=== PATIENT | male | born 1980 | race Caucasian/White ===

== ENCOUNTER 2020-06-07 15:25 | Emergency (ER) | payer BC ==
--- OUTSIDE RECORDS SUMMARY | 2020-06-07 15:28 | XMS REPORT | Continuity of Care Document ---
:1980 Author Organization [facility] t Address [address] [place] [address] Dr. Hoffmann [address] [place] [id number] Care Team Providers Name Role Phone Unavailable Unavailable Unavailable Problems This patient has no known problems. Allergies, Adverse Reactions, Alerts This patient has no known allergies or adverse reactions. Medications This patient has no known medications. Procedures This patient has no known procedures. Results This patient has no known results.
[2020-06-07] MEDS ORDERED: HYDROCODONE/APAP 10/325 TAB ONE (17:03)
[2020-06-07] MEDS ORDERED: CYCLOBENZAPRINE 10 MG TAB ONE (17:03)
--- NOTE | 2020-06-07 17:20 | RAD REPORT ---
EXAM DESCRIPTION: CT - Spine Lumbar Wo Con - 06/07/2020 5:08 pm CLINICAL HISTORY: Radiculopathy. LOWER BACK PAIN COMPARISON: No comparisons TECHNIQUE: Axial noncontrast CT imaging of the lumbar spine was performed with coronal and sagittal re-formatted images. All CT scans are performed using dose optimization technique as appropriate and may include automated exposure control or mA/KV adjustment according to patient size. FINDINGS: No acute lumbar spine fracture seen. No aggressive marrow pattern or malalignment. Paraspinal tissues are normal in thickness. No paraspinal abscess or hematoma seen. Prominent disc herniation is suspected at L4-5, incompletely assessed by CT. IMPRESSION: No acute lumbar spine abnormality. Suspected disc herniation at L4-5, incompletely assessed. Recommend follow-up nonemergent MR imaging of the lumbar spine for further assessment.
--- NOTE | 2020-06-07 17:55 | ER ---
Nurse's Notes [facility] Name: Juan Manuel Abraham Age: 40 yrs Sex: Male : 1980 Arrival Date: 06/07/2020 Time: 15:32 Bed 19 Private MD: Diagnosis: Low back pain-L4-5 disc herniation Presentation: 06/07 15:59 Chief complaint: Patient states: Woke up yesterday, I can't move, can't put my shorts ca1 on. Reports lower back pain and has gotten worse since yesterday. Denies injury to the back. Denies urinary symptoms. Coronavirus screen: Client denies travel out of the [place] in the last 14 days. At this time, the client does not indicate any symptoms associated with coronavirus-19. Ebola Screen: Patient negative for fever greater than or equal to 101.5 degrees Fahrenheit, and additional compatible Ebola Virus Disease symptoms Patient denies exposure to infectious person. Patient denies travel to an Ebola-affected area in the 21 days before illness onset. No symptoms or risks identified at this time. Initial Sepsis Screen: Does the patient meet any 2 criteria? No. Patient's initial sepsis screen is negative. Does the patient have a suspected source of infection? No. Patient's initial sepsis screen is negative. Risk Assessment: Do you want to hurt yourself or someone else? Patient reports no desire to harm self or others. Onset of symptoms was June 07, 2020. 15:59 Method Of Arrival: Wheelchair ca1 15:59 Acuity: YASSINE 3 ca1 Historical: - Allergies: 16:02 No Known Allergies; ca1 - Home Meds: 16:02 None [Active]; ca1 - PMHx: 16:02 None; ca1 - PSHx: 16:02 None; ca1 - Immunization history:: Flu vaccine is not up to date. - Social history:: Smoking status: Patient reports the use of cigarette tobacco products, smokes one-half pack cigarettes per day. Screenin:26 Abuse screen: Denies threats or abuse. Denies injuries from another. Nutritional zb screening: No deficits noted. Tuberculosis screening: No symptoms or risk factors identified. Fall Risk None identified. Assessment: 16:42 Reassessment: ECP at bedside. zb 17:00 General: Appears uncomfortable, Behavior is cooperative, appropriate for age. Pain: zb Complains of pain in low back area Pain currently is 10 out of 10 on a pain scale. Quality of pain is described as aching, piercing, Pain began 1 day ago. Is continuous, Aggravated by increased activity, repositioning. Neuro: Level of Consciousness is awake, alert, obeys commands, Oriented to person, place, time, situation. Cardiovascular: Patient's skin is warm and dry. Respiratory: Airway is patent Respiratory effort is even, unlabored, Respiratory pattern is regular, symmetrical. GI: Abdomen is round. : No signs and/or symptoms were reported regarding the genitourinary system. EENT: No signs and/or symptoms were reported regarding the EENT system. Derm: Skin is intact, Skin is dry, Skin is normal, Skin temperature is warm. Musculoskeletal: Range of motion: intact in all extremities, Reports pain in low back area Denies. 18:20 Reassessment: Patient appears in no apparent distress at this time. Patient and/or zb family updated on plan of care and expected duration. Pain level reassessed. Patient is alert, oriented x 3, equal unlabored respirations, skin warm/dry/pink. D/C PENDING IM INJECTION TIME. PATIENT APPEARS TO BE MORE MOBILE. Vital Signs: 15:59 BP 132 / 97; Pulse 81; Resp 16 S; Temp 97.7(TE); Pulse Ox 98% on R/A; Weight 88.45 kg ca1 (R); Height 5 ft. 7 in. (170.18 cm) (R); Pain 10/10; 17:25 BP 144 / 99; Pulse 68; Resp 16; Pulse Ox 94% on R/A; zb 18:21 BP 129 / 77; Pulse 66; Resp 18; Pulse Ox 94% on R/A; zb 15:59 Body Mass Index 30.54 (88.45 kg, 170.18 cm) ca1 ED Course: 15:32 Patient arrived in ED. bg2 16:01 Triage completed. ca1 16:02 Arm band placed on right wrist. ca1 16:26 Elham Vora FNP-C is PHCP. kb 16:26 Juan Pablo Moralez MD is Attending Physician. kb 16:50 Kaleigh Lamar RN is Primary Nurse. zb 17:27 Patient has correct armband on for positive identification. Bed in low position. Call zb light in reach. Side rails up X 1. Pulse ox on. NIBP on. Door closed. Noise minimized. Warm blanket given. Head of bed elevated. 18:30 No provider procedures requiring assistance completed. Patient did not have IV access zb during this emergency room visit. Administered Medications: 16:48 Drug: Sublette 10 mg-325 mg 1 tabs {Note: rass 0.} Route: PO; ca1 18:20 Follow up: Response: No adverse reaction; Pain is decreased; RASS: Alert and Calm (0) zb 16:50 Drug: Flexeril 10 mg Route: PO; ca1 18:20 Follow up: Response: No adverse reaction; Pain is decreased zb 18:13 Drug: Lidoderm 5 % (700 mg/patch) 1 patches Route: Topical; Site: affected area; zb 18:30 Follow up: Response: No adverse reaction zb 18:15 Drug: TORadol 60 mg Route: IM; Site: left deltoid; zb 18:30 Follow up: Response: No adverse reaction zb Outcome: 17:55 Discharge ordered by . kb 18:30 Discharged to home via wheelchair. zb 18:30 Condition: stable 18:30 Discharge instructions given to patient, Instructed on discharge instructions, follow up and referral plans. medication usage, Demonstrated understanding of instructions, follow-up care, medications, Prescriptions given X 3. 18:43 Patient left the ED. zb Signatures: Elham Vora, YO ROBERSON-Ro Whitfield bg2 Marilia Menendez RN RN ca1 Kaleigh Lamar RN RN zb
--- NOTE | 2020-06-07 17:55 | EDPHYS ---
Physician Documentation [facility] Name: Juan Manuel Abraham Age: 40 yrs Sex: Male : 1980 Arrival Date: 06/07/2020 Time: 15:32 Bed 19 Private MD: JENNIFER Physician Juan Pablo Moralez HPI: 06/07 18:07 This 40 yrs old Male presents to ER via Wheelchair with complaints of Back kb Pain. 18:07 The patient presents with pain that is acute, with no known mechanism of injury. The kb symptoms are located in the low back. Onset: The symptoms/episode began/occurred this morning. The pain does not radiate. Associated signs and symptoms: The patient has no apparent associated signs or symptoms. The problem was sustained from unknown cause. Modifying factors: The patient symptoms are alleviated by nothing, the patient symptoms are aggravated by any movement. Severity of symptoms: At their worst the symptoms were severe, in the emergency department the symptoms are unchanged. The patient has not experienced similar symptoms in the past. The patient has not recently seen a physician. Historical: - Allergies: 16:02 No Known Allergies; ca1 - Home Meds: 16:02 None [Active]; ca1 - PMHx: 16:02 None; ca1 - PSHx: 16:02 None; ca1 - Immunization history:: Flu vaccine is not up to date. - Social history:: Smoking status: Patient reports the use of cigarette tobacco products, smokes one-half pack cigarettes per day. ROS: 18:06 Constitutional: Negative for fever, chills, and weight loss, Cardiovascular: Negative kb for chest pain, palpitations, and edema, Respiratory: Negative for shortness of breath, cough, wheezing, and pleuritic chest pain, Abdomen/GI: Negative for abdominal pain, nausea, vomiting, diarrhea, and constipation, : Negative for injury, bleeding, discharge, and swelling, MS/Extremity: Negative for injury and deformity, Skin: Negative for injury, rash, and discoloration, Neuro: Negative for headache, weakness, numbness, tingling, and seizure. 18:06 Back: Positive for pain at rest, pain with movement, of the low back area. Exam: 18:06 Constitutional: This is a well developed, well nourished patient who is awake, alert, kb and in no acute distress. Head/Face: Normocephalic, atraumatic. Cardiovascular: Regular rate and rhythm with a normal S1 and S2. No gallops, murmurs, or rubs. No pulse deficits. Respiratory: Lungs have equal breath sounds bilaterally, clear to auscultation. No rales, rhonchi or wheezes noted. No increased work of breathing, no retractions or nasal flaring. Abdomen/GI: Soft, non-tender, with normal bowel sounds. No distension. No guarding or rebound. No evidence of tenderness throughout. Skin: Warm, dry with normal turgor. Normal color with no rashes, no lesions, and no evidence of cellulitis. MS/ Extremity: Pulses equal, no cyanosis. Neurovascular intact. Full, normal range of motion. Neuro: Awake and alert, GCS 15, oriented to person, place, time, and situation. Cranial nerves II-XII grossly intact. Moves all extremities. Sensory grossly intact. Cerebellar exam normal. Normal gait. 18:06 Back: pain, that is moderate, that is severe, of the low back area, ROM is painful, with all movement, normal spinal alignment noted. Vital Signs: 15:59 BP 132 / 97; Pulse 81; Resp 16 S; Temp 97.7(TE); Pulse Ox 98% on R/A; Weight 88.45 kg ca1 (R); Height 5 ft. 7 in. (170.18 cm) (R); Pain 10/10; 17:25 BP 144 / 99; Pulse 68; Resp 16; Pulse Ox 94% on R/A; zb 18:21 BP 129 / 77; Pulse 66; Resp 18; Pulse Ox 94% on R/A; zb 15:59 Body Mass Index 30.54 (88.45 kg, 170.18 cm) ca1 MDM: 16:40 Patient medically screened. kb 17:54 Data reviewed: vital signs, nurses notes. Data interpreted: Pulse oximetry: on room air kb is 98 %. Interpretation: normal. Counseling: I had a detailed discussion with the patient and/or guardian regarding: the historical points, exam findings, and any diagnostic results supporting the discharge/admit diagnosis, radiology results, the need for outpatient follow up, a family practitioner, to return to the emergency department if symptoms worsen or persist or if there are any questions or concerns that arise at home. 06/07 16:46 Order name: CT Lumbar Spine Wo Con kb 06/07 17:21 Order name: CT; Complete Time: 17:22 EDMS Administered Medications: 16:48 Drug: Beemer 10 mg-325 mg 1 tabs {Note: rass 0.} Route: PO; ca1 18:20 Follow up: Response: No adverse reaction; Pain is decreased; RASS: Alert and Calm (0) zb 16:50 Drug: Flexeril 10 mg Route: PO; ca1 18:20 Follow up: Response: No adverse reaction; Pain is decreased zb 18:13 Drug: Lidoderm 5 % (700 mg/patch) 1 patches Route: Topical; Site: affected area; zb 18:30 Follow up: Response: No adverse reaction zb 18:15 Drug: TORadol 60 mg Route: IM; Site: left deltoid; zb 18:30 Follow up: Response: No adverse reaction zb Disposition: 06/07/20 17:55 Discharged to Home. Impression: Low back pain - L4-5 disc herniation. - Condition is Stable. - Discharge Instructions: Back Injury Prevention, Escr-ov-Hgqy, Back Pain, Adult, Lzya-xn-Mekk, Herniated Disk, Vewm-mw-Gsui. - Prescriptions for Ibuprofen 800 mg Oral Tablet - take 1 tablet by ORAL route every 8 hours As needed take with food; 30 tablet. Tylenol- Codeine #3 300-30 mg Oral Tablet - take 1 tablet by ORAL route every 4 hours As needed; 15 tablet. Cyclobenzaprine 10 mg Oral Tablet - take 1 tablet by ORAL route every 8 hours As needed; 21 tablet. - Work release form, Medication Reconciliation Form, Thank You Letter, Antibiotic Education, Prescription Opioid Use form. - Follow up: Emergency Department; When: As needed; Reason: Worsening of condition. Follow up: Private Physician; When: 2 - 3 days; Reason: Recheck today's complaints, Continuance of care, Re-evaluation by your physician. Addendum: 06/08/2020 19:55 Co-signature as Attending Physician, Juan Pablo Moralez MD I agree with the assessment and c haddad plan of care. Signatures: Dispatcher [employer] EDSD Elham Vora, GLAZIER SUPERVISOR-C KAROL-Juan Pablo Rowland MD MD cha Acob, Cheryl RN RN ca1 Brown, Kaleigh, RN RN zb Corrections: (The following items were deleted from the chart) 06/07 18:43 17:55 06/07/2020 17:55 Discharged to Home. Impression: Low back pain - L4-5 disc zb herniation. Condition is Stable. Forms are Medication Reconciliation Form, Thank You Letter, Antibiotic Education, Prescription Opioid Use. Follow up: Emergency Department; When: As needed; Reason: Worsening of condition. Follow up: Private Physician; When: 2 - 3 days; Reason: Recheck today's complaints, Continuance of care, Re-evaluation by your physician. kb
[2020-06-07] MEDS ORDERED: LIDOCAINE 4% PATCH ONE (18:29)
[2020-06-07] MEDS ORDERED: KETOROLAC 30 MG/ML INJ ONE (18:29)
[2020-06-07 20:44] VITALS: TEMP 97.7
[2020-06-07 20:45] VITALS: O2SAT 94
[2020-06-07 20:46] VITALS: BP 129/77
== END 2020-06-07 18:43 | disposition home or self-care (01) ==
LOC: ER 15:25
DX: M51.26 Other intervertebral disc displacement, lumbar region (principal); F17.210 Nicotine dependence, cigarettes, uncomplicated
CPT/HCPCS: 72131; 96372; 99283

== ENCOUNTER 2023-08-27 17:28 | Emergency (ER) | payer BC ==
--- OUTSIDE RECORDS SUMMARY | 2023-08-27 17:31 | XMS REPORT | Continuity of Care Document ---
Author Name Unknown Address [address] [place] [address] [facility] thconnect Address 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 Name Role Phone BLANCO DING Attending Clinician Unavailable Payers Payer Name Policy Type Policy Number Effective Date Expirati on Date Source [facility] [id number] 2020 00:00:00 Allergies, Adverse Reactions, Alerts Allergy Name Allergy Type Status Severity Reaction(s) Onset Date Inactive Date Treating Clinician Comments Source NO KNOWN ALLERGIE S Drug Class Active [facility] Encounters Start Date/Time End Date/Time Encounter Type Admission Type Attending Clinicians Care Facility Care Department Encounter ID Source 2020-05-11 11:20:00 2020-05-11 11:20:00 Outpatient BLANCO HARTMANN [facility] [id number] [facility] 2020-05-11 11:15:00 2020-05-11 11:15:00 Outpatient [facility] [id number] [facility]
[2023-08-27] MEDS ORDERED: KETOROLAC 30 MG/ML INJ ONE (18:04)
[2023-08-27] MEDS ORDERED: HYDROCODONE/APAP 10/325 TAB ONE (18:04)
--- NOTE | 2023-08-27 19:32 | RAD REPORT ---
EXAM DESCRIPTION: RAD - Knee Left 3 View - 08/27/2023 7:22 pm CLINICAL HISTORY: PAIN COMPARISON: No comparisons FINDINGS/IMPRESSION: Predominantly transversely oriented fracture of the proximal tibial metaphysis. No extension to the tibial plateau is identified. Avulsion fracture of the proximal fibula is also p resent. Lipohemarthrosis is present. The distal femur is intact.
--- NOTE | 2023-08-27 19:39 | ER ---
Nurse's Notes [facility] Name: Juan Manuel Abraham Age: 43 yrs Sex: Male : 1980 Arrival Date: 08/27/2023 Time: 17:28 Bed 9 Private MD: Diagnosis: Fracture of proximal tibia;Avulsion fracture of proximal fibula Presentation: 08/26 18:01 Chief complaint: Patient states: pt was racing his son and fell and hit his left knee. as6 Coronavirus screen: At this time, the client does not indicate any symptoms associated with coronavirus-19. Ebola Screen: No symptoms or risks identified at this time. Initial Sepsis Screen: Does the patient meet any 2 criteria? No. Patient's initial sepsis screen is negative. Does the patient have a suspected source of infection? No. Patient's initial sepsis screen is negative. Risk Assessment: Do you want to hurt yourself or someone else? Patient reports no desire to harm self or others. Onset of symptoms was August 27, 2023. 18:01 Acuity: YASSINE 4 as6 18:01 Method Of Arrival: Wheelchair as6 Triage Assessment: 18:03 General: Appears uncomfortable, Behavior is calm, cooperative. Pain: Complains of pain as6 in left knee. Historical: - Allergies: 18:01 No Known Allergies; as6 - PMHx: 18:01 None; as6 - PSHx: 18:01 leg; as6 - Immunization history:: Adult Immunizations up to date. - Infectious Disease History:: Denies. - Social history:: Smoking status: Patient denies any tobacco usage or history of. - Family history:: not pertinent. Screenin:27 Abuse screen: Denies threats or abuse. Nutritional screening: No deficits noted. eb1 Tuberculosis screening: No symptoms or risk factors identified. Assessment: 20:00 General: Appears in no apparent distress. uncomfortable, well groomed, well developed, eb1 well nourished, Behavior is calm, cooperative, appropriate for age. Pain: Complains of pain in left knee Pain currently is 8 out of 10 on a pain scale. Neuro: No deficits noted. Cardiovascular: No deficits noted. Respiratory: No deficits noted. GI: No deficits noted. No signs and/or symptoms were reported involving the gastrointestinal system. : No deficits noted. No signs and/or symptoms were reported regarding the genitourinary system. EENT: No deficits noted. No signs and/or symptoms were reported regarding the EENT system. Derm: No deficits noted. No signs and/or symptoms reported regarding the dermatologic system. Musculoskeletal: No deficits noted. No signs and/or symptoms reported regarding the musculoskeletal system. Vital Signs: 18:01 BP 129 / 85; Pulse 103; Resp 18 S; Temp 98.5; Pulse Ox 96% on R/A; Weight 85.28 kg (R); as6 Height 5 ft. 7 in. (R); Pain 10/10; 18:01 Body Mass Index 29.44 (85.28 kg, 170.18 cm) as6 18:01 Pain Scale: Adult as6 ED Course: 17:31 Patient arrived in ED. mg5 17:34 Scott Metcalf MD is Attending Physician. rt 18:01 Arm band placed on. as6 18:03 Triage completed. as6 18:09 Affected limb iced. as6 19:23 Knee Left 3 View XRAY In Process Unspecified. EDMS 19:39 Jac Manzanares MD is Referral Physician. rt 20:27 Patient has correct armband on for positive identification. eb1 20:27 No provider procedures requiring assistance completed. Patient did not have IV access eb1 during this emergency room visit. Administered Medications: 18:09 Drug: HYDROcodone-acetaminophen PO 10 mg-325 mg 1 tabs PO once Route: PO; as6 18:09 Drug: Ketorolac IM 15 mg IM once Route: IM; Site: right deltoid; as6 Outcome: 19:39 Discharge ordered by . rt 20:27 Discharged to home with crutches, with family, eb1 20:27 Condition: good 20:27 Discharge instructions given to patient, Instructed on discharge instructions, follow up and referral plans. Demonstrated understanding of instructions, follow-up care, medications, Prescriptions given X 1, 20:28 Patient left the ED. eb1 Signatures: Dispatcher [employer] EDMS Elena Fry RN RN eb1 Pardeep Gagnon RN RN as6 Scott Metcalf MD MD rt Elly Montalvo mg5 Corrections: (The following items were deleted from the chart) 18:01 18:01 Allergies: No Known Allergies; as6 as6 18:01 18:01 PMHx: None; as6 as6 18:01 18:01 PSHx: None; as6 as6
--- NOTE | 2023-08-27 19:39 | EDPHYS ---
Physician Documentation [facility] Name: Juan Manuel Abraham Age: 43 yrs Sex: Male : 1980 Arrival Date: 08/27/2023 Time: 17:28 Bed 9 Private MD: ED Physician Scott Metcalf HPI: 08/26 19:58 This 43 yrs old Male presents to ER via Wheelchair with complaints of Knee rt Injury. 19:58 Patient presents to the ED with an injury to the left knee. Patient was running rt outside, when he fell, landing onto his left knee. Reports pain to the area. Was not able to bear weight. Denies other injuries, other acute complaints, symptoms are aching in nature, nonradiating, moderate in severity, no other aggravating or alleviating factors.. Historical: - Allergies: 18:01 No Known Allergies; as6 - PMHx: 18:01 None; as6 - PSHx: 18:01 leg; as6 - Immunization history:: Adult Immunizations up to date. - Infectious Disease History:: Denies. - Social history:: Smoking status: Patient denies any tobacco usage or history of. - Family history:: not pertinent. ROS: 19:58 Constitutional: Negative for fever, chills, and weight loss, Cardiovascular: Negative rt for chest pain, palpitations, and edema, Respiratory: Negative for shortness of breath, cough, wheezing, and pleuritic chest pain, Abdomen/GI: Negative for abdominal pain, nausea, vomiting, diarrhea, and constipation, Neuro: Negative for headache, weakness, numbness, tingling, and seizure, 19:58 : Positive for 19:58 MS/extremity: Positive for pain, swelling, Exam: 19:58 Constitutional: This is a well developed, well nourished patient who is awake, alert, rt and in no acute distress. Head/Face: Normocephalic, atraumatic. Chest/axilla: Normal chest wall appearance and motion. Nontender with no deformity. No lesions are appreciated. Cardiovascular: Regular rate and rhythm with a normal S1 and S2. No gallops, murmurs, or rubs. Normal PMI, no JVD. No pulse deficits. Respiratory: Lungs have equal breath sounds bilaterally, clear to auscultation and percussion. No rales, rhonchi or wheezes noted. No increased work of breathing, no retractions or nasal flaring. Abdomen/GI: Soft, non-tender, with normal bowel sounds. No distension or tympany. No guarding or rebound. No evidence of tenderness throughout. Skin: Warm, dry with normal turgor. Normal color with no rashes, no lesions, and no evidence of cellulitis. Neuro: Awake and alert, GCS 15, oriented to person, place, time, and situation. Cranial nerves II-XII grossly intact. Motor strength 5/5 in all extremities. Sensory grossly intact. Cerebellar exam normal. Normal gait. 19:58 Musculoskeletal/extremity: Tenderness over left tibial tuberosity, no deformities noted, mild swelling at the area. Pulses, motor, sensation intact, compartments are soft.. Vital Signs: 18:01 BP 129 / 85; Pulse 103; Resp 18 S; Temp 98.5; Pulse Ox 96% on R/A; Weight 85.28 kg (R); as6 Height 5 ft. 7 in. (R); Pain 10/10; 18:01 Body Mass Index 29.44 (85.28 kg, 170.18 cm) as6 18:01 Pain Scale: Adult as6 MDM: 18:09 Patient medically screened. rt 19:58 Differential Diagnosis Fracture, contusion. Data reviewed: vital signs, nurses notes, rt radiologic studies. I considered the following discharge prescriptions or medication management in the emergency department Medications were administered in the Emergency Department. See MAR. Independent interpretation of the following test(s) in the Emergency Department X-Ray: My interpretation is Nondisplaced fracture seen on my interpretation of x-ray images. Counseling: I had a detailed discussion with the patient and/or guardian regarding the historical points, exam findings, and any diagnostic results supporting the discharge/admit diagnosis, radiology results, the need for outpatient follow up, to return to the emergency department if symptoms worsen or persist or if there are any questions or concerns that arise at home. Response to treatment: the patient's symptoms have markedly improved after treatment. 08/26 18:03 Order name: Knee Left 3 View XRAY; Complete Time: 19:32 rt 08/26 19:38 Order name: Crutches; Complete Time: 19:53 rt 08/26 19:38 Order name: Knee Immobilizer; Complete Time: 19:53 rt Administered Medications: 18:09 Drug: HYDROcodone-acetaminophen PO 10 mg-325 mg 1 tabs PO once Route: PO; as6 18:09 Drug: Ketorolac IM 15 mg IM once Route: IM; Site: right deltoid; as6 Disposition Summary: 08/27/23 19:39 Discharge Ordered Notes: Location: Home rt Problem: new rt Symptoms: have improved rt Condition: Stable rt Diagnosis - Fracture of proximal tibia rt - Avulsion fracture of proximal fibula rt Followup: rt - With: Jac Manzanares MD - When: 5 - 6 days - Reason: Discharge Instructions: - Discharge Summary Sheet rt - Tibial Fracture, Adult rt Forms: - Medication Reconciliation Form rt - Antibiotic Education rt - Prescription Opioid Use rt - Patient Portal Instructions rt - Leadership Thank You Letter rt Prescriptions: - acetaminophen-codeine 300-30 mg Oral tablet - take 1 tablet ORAL route every 6 hours as needed for pain; 18 tablet; Refills: rt 0, Product Selection Permitted Signatures: Dispatcher [employer] Pardeep Stock RN RN as6 Scott Metcalf MD MD rt Corrections: (The following items were deleted from the chart) 18:01 18:01 Allergies: No Known Allergies; as6 as6 18:01 18:01 PMHx: None; as6 as6 18:01 18:01 PSHx: None; as6 as6
[2023-08-27 20:51] VITALS: BP 129/85; TEMP 98.5; O2SAT 96
== END 2023-08-27 20:28 | disposition home or self-care (01) ==
LOC: ER 17:28
DX: S82.102A Unspecified fracture of upper end of left tibia, initial encounter for closed fracture (principal); S82.492A Other fracture of shaft of left fibula, initial encounter for closed fracture
CPT/HCPCS: 96372; 99284